=== PATIENT | male | born 1990 | race Caucasian/White ===

== ENCOUNTER 2021-08-06 17:55 | Observation (INO) | payer OTHER ==
[~2021-08-06] VITALS: Ht 180.3 cm; Wt 113.4 kg
[2021-08-06 19:18] LABS: HEMOGLOBIN 14.8 gm/dl (14.0-17.5); RED BLOOD COUNT 4.86 M/UL (4.20-5.50); WHITE BLOOD COUNT 12.3 K/UL (4.5-11.0)
[2021-08-06 19:37] LABS: BUN/CREATININE RATIO 15 (0-10)
[2021-08-06] MEDS ORDERED: ALEVE220 M1 PO (23:27)
== END 2021-08-07 18:59 | disposition home or self-care (01) ==
LOC: ER1 17:55 → CDU 20:28 → MED SURG 4 20:30 → CDU 20:30 → MED SURG 4 23:12
PROVIDERS: Physician Assistant; ADMIT Surgery
DX: K35.80 Unspecified acute appendicitis (principal); F17.210 Nicotine dependence, cigarettes, uncomplicated; E66.9 Obesity, unspecified; Z68.34 Body mass index [BMI] 34.0-34.9, adult; Z20.822 Contact with and (suspected) exposure to COVID-19
CPT/HCPCS: 80053; 83690; 85025; 96374; 96375; 99285; G0378; J1100; J1170; J1200; J1885; J2001; J2250; J2270; J2405; J2543; J2704; J2710; J3010; J7030; J7120; Q9967; U0002